=== PATIENT | female | born 1990 | race Caucasian/White ===

== ENCOUNTER 2018-09-15 01:05 | Inpatient (IN) | payer OTHER, SELFPAY ==
[2018-09-15 01:22] VITALS: BMI 28.3
[2018-09-15] MEDS: Lactated Ringers 1,000 ML 15 ML IV (02:10)
[2018-09-15 02:34] LABS: Hematocrit 31.6 % (37-47); Hemoglobin 10.7 g/dl (12.0-15.0); Mean Corp Hgb Conc 33.9 g/gl (32-36); Mean Corpuscular Hgb 29.2 pg (27.0-32.0); Mean Corpuscular Volume 86.3 fL (81-99); Mean Platelet Vol. 10.1 fl (6.2-12.0); Platelet Count 269 K/mm3 (150-450); RBC Distribution Width CV 12.6 % (11.6-14.6); RBC Distribution Width SD 38.6 fl (35.1-43.9); Red Blood Count 3.66 M/mm3 (4.2-5.4); White Blood Count 10.6 K/mm3 (4.4-11.0)
[2018-09-15 02:39] LABS: Scan Indicated on CBC? Y/N NO
[2018-09-15] MEDS: Oxytocin 30 units/NS 500 ml 30 UNITS/500 ML IV.SOLN 334 UNITS IV (03:28)
[2018-09-15] MEDS: Oxytocin 30 units/NS 500 ml 30 UNITS/500 ML IV.SOLN 167 UNITS IV (04:00)
--- NOTE | 2018-09-15 04:03 | PCM.HP.OB ---
- Problem List (1) Tobacco use affecting in first trimester, antepartum Status: Acute (2) Rh negative status during Status: Acute (3) Normal delivery Status: Acute (4) First degree perineal laceration Status: Acute History Date of Admission: 09/15/18 Final ODILIA: 09/15/18 Final ODILIA Source: US <20 weeks Gestational age: 40 Weeks and 0 Days History of this : This is a 28 year-old, G [3], P [2001], at 41 weeks gestational age. Presented to L&D with ROM at 1230am and having irregular contractions. Allergies cephalexin [From Keflex] Allergy (Verified 09/15/18 01:24) Nausea/Vom/Diarrhea CONTROL Allergy (Uncoded 08/15/16 12:22) Hives Home Medications: Home Medications Ketorolac [Toradol] 10 mg PO Q6H PRN #14 tablet 08/13/16 Ondansetron [Zofran Odt] 4 mg PO Q6H PRN PRN #10 tablet 08/13/16 Oxycodone HCl/Acetaminophen [Percocet 5/325] 1 - 2 tablet PO Q6H PRN PRN #20 tablet 08/13/16 Cephalexin [Keflex] 500 mg PO Q8 #9 capsule 08/15/16 Hydrocodone/Acetaminophen [[place] 5-325 Tablet] 1 each PO Q4H PRN PRN #10 tablet 08/15/16 Folic Acid 0.4 mg PO DAILY@0800 09/15/18 Caplet PO DAILY 09/15/18 Smoking Status: Current every day smoker Alcohol: None Number of Fetus(es): 1 Heart Tracin, moderate variability, accels, Categroy 1 History Past Pregnancies: Past Pregnancies Delivery Date Name GA/Weeks Outcome Route Weight Infant Gender Labor Length Anesthesia Delivery Location Provider FOB Labs: GBS negative RPR negative Rubella Immune HIV negative HBsAG negative B negative GC/CT negative Expected Delivery Method: Spontaneous Vaginal Physical Exam General: Alert, Oriented x3, No apparent distress HEENT: Atraumatic, Normocephalic Extremities:: No edema Assessment/Plan All Active Problems Tobacco use affecting in first trimester, antepartum (Acute) Rh negative status during (Acute) Normal delivery (Acute) First degree perineal laceration (Acute) This is a 28 year-old, G [3], P [2002], at 41 weeks gestational age. A:Active labor Spontaneous Rupture of Membranes P: 1) Admit to L&D. Routine labs 2) Planning epidural for pain management 3) Continuous monitoring 4) Active labor with expectant management at this time. 5) notified of patient status and in labor.
--- NOTE | 2018-09-15 04:12 | PCM.OB.VAG ---
- Problem List (1) Tobacco use affecting in first trimester, antepartum Status: Acute (2) Rh negative status during Status: Acute (3) Normal delivery Status: Acute (4) First degree perineal laceration Status: Acute Vaginal Delivery Maternal Presentation: Active Labor, Spontaneous Rupture of Membranes Amniotic Membrane Rupture Type: Spontaneous Amniotic Fluid Description: Clear Final ODILIA: 09/15/18 Gestational age: 40 Weeks and 0 Days Date of Procedure: 09/15/18 Pre-Operative Diagnosis: Active labor, SROM Post-Operative Diagnosis: Surgery/ Procedure Performed: Spontaneous Vaginal Delivery Type of Anesthesia: Local with 1% lidocaine Description of Procedure: Called in for patient unmedicated labor at 6cm, requesting epidural but unable to get due to OR case. Upon arrival patient precipitously delivered unmedicated by Jorge Schneider RN, uncomplicated, Female infant over 1st degree perineal laceration. APGARS 9,10. Cord clamped and cut by FOB. Pitocin started for active 3rd stage management. Placenta delivered via hultz, intact, 3 vessel cord. Perineum inspected and revealed 1st degree perineal laceration repaired with 3.0 vicryl and 1% lidocaine and right periuretheral laceration reparied with 3.0 vicryl. Fundus firm, hemostasis achieved, EBL 300ml. Sponge and instrument count correct. Vaginal sweep and clots extracted. Mom and baby stable. Planning to breastfeed, Family bonding well. notified of delivery. Presentation: Vertex Placental Delivery Description: Spontaneous Placenta Disposition: [facility] Cord Vessel Description: 3 Vessels Cord Entanglement: None Estimated Blood Loss: 300ml A gender: Female (1 minute): 9 (5 minute): 10 Episiotomy Description: None Laceration: Periurethral Extnsion/lac, Perineal Extension/lac, 1st degree Medications given after delivery: IV Pitocin
[2018-09-15 07:51] VITALS: BP 103/64; PULSE 85; RESP 18; TEMP 36.3
[2018-09-15 12:16] VITALS: BP 106/69; PULSE 92; RESP 18; TEMP 36.2; O2SAT 97
[2018-09-15 15:50] VITALS: BP 109/63; PULSE 85; RESP 16; TEMP 36.4
[2018-09-15 20:10] VITALS: BP 111/58; PULSE 100; RESP 16; TEMP 36.4; O2SAT 96
[2018-09-15 22:45] VITALS: BP 104/61; PULSE 82; RESP 16; TEMP 36.1; O2SAT 97
[2018-09-16 03:40] VITALS: BP 107/68; PULSE 86; RESP 16; TEMP 36.6; O2SAT 98
[2018-09-16 07:50] VITALS: BP 100/57; PULSE 72; RESP 17; TEMP 36.3
--- NOTE | 2018-09-16 08:08 | PCM.PN.OB ---
Patient Problems: Active and Suspected Problems Tobacco use affecting in first trimester, antepartum (Acute) Rh negative status during (Acute) Normal delivery (Acute) First degree perineal laceration (Acute) Subjective: Patient doing well and feels ready to go home. Ambulating and voiding without difficulty. [place]eewee reg diet without N/V. Lochia decreasing. Denies CP, SOB, leg pain. She is pumping. - Physical Exam General: Alert, No apparent distress HEENT: Atraumatic Lungs: - - No increased resp effort Abdomen: Soft, Non Tender, - - FF@U-1 Extremities: No edema, No Calf Tenderness Skin: No rashes Neurological: Neuro grossly intact Psych/Mental Status: Normal Affect, Appropriate Vital Signs Temp Pulse Resp BP Pulse Ox 97.4 F L 72 17 100/57 L 98 09/16/18 07:50 09/16/18 07:50 09/16/18 07:50 09/16/18 07:50 09/16/18 03:40 Oxygen Delivery Method Room Air Weight: 160 lb Body Mass Index (BMI) 28.3 Intake and Output for Last 24 Hours 09/14/18 09/15/18 09/16/18 23:59 23:59 23:59 Intake Total 1223 / 1223 Output Total 700 / 700 Balance 523 / 523 Medical Necessity - Tobacco Use Smoking Status: Current every day smoker Assessment/Plan All Active Problems Tobacco use affecting in first trimester, antepartum (Acute) Rh negative status during (Acute) Normal delivery (Acute) First degree perineal laceration (Acute) day#1 s/p - Doing well - Pumping - PPBC: Desires Mirena after 6 wk visit - Dispo: D/c home today. Discharge instructions reviewed
--- NOTE | 2018-09-16 08:12 | DCINST_ITS ---
Discharge Diet: No Restrictions Discharge Activity: May Drive, May Shower May resume sexual activity in: 6 weeks Weight Bearing Status: Weight bearing as tolerated Lifting Restrictions: None Call your doctor if you observe: Fever of 101 or Higher, Inability to urinate, Inability to have a bowel movement, Using more than one pad per hour, Shortness of breath, Dizziness, Chest pain, Increased palpitations (irregular heartbeat), Calf discomfort, Uncontrolled pain Instructions: After a Vaginal Additional Instructions: If you experience any of the following, contact your healthcare provider. * Bleeding that soaks a pad every hour for 2 hours * Fever 100.4 or higher * Unrelieved incision or abdominal pain * Swelling, redness, discharge or bleeding from your incision or episiotomy site * Your incision begins to separate * Problems urinating (including inability to urinate or burning while urinating). * Visual changes * Severe headache * Flu-like symptoms * Pain or redness in one of both of your breasts * Pain, warmth, tenderness or swelling in your legs, especially the calf area * Frequent nausea and vomiting * Symptoms of depression or anxiety If you experience any of the following, call 911 or go to the nearest Emergency Room. * Chest pain * Problems breathing * Seizure activity * Partial or complete paralysis of a body part, slurred speech, weakness or drooping of the face, or a sudden inability to walk or hold your balance Allergies/Adverse Reactions: Allergies cephalexin [From Keflex] Allergy (Verified 09/15/18 01:24) Nausea/Vom/Diarrhea CONTROL Allergy (Uncoded 08/15/16 12:22) Hives Medications to take at Discharge Ketorolac [Toradol] 10 mg PO Q6H PRN #14 tablet 08/13/16 Ondansetron [Zofran Odt] 4 mg PO Q6H PRN PRN #10 tablet 08/13/16 Oxycodone HCl/Acetaminophen [Percocet 5/325] 1 - 2 tablet PO Q6H PRN PRN #20 tablet 08/13/16 Cephalexin [Keflex] 500 mg PO Q8 #9 capsule 08/15/16 Hydrocodone/Acetaminophen [[place] 5-325 Tablet] 1 each PO Q4H PRN PRN #10 tablet 08/15/16 Folic Acid 0.4 mg PO DAILY@0800 01/28/19 [place] PO DAILY 09/15/18 Please Follow Up With: Claudia Diaz CNM When: In 6 weeks for visit. Follow up in 1-2 weeks if you desire Primary Care Physician: Brendon Anderson MD [Primary Care Provider] - Test Results: Test results from this visit will be discussed in further detail at your follow- up appointment, if applicable.
== END 2018-09-16 10:55 | disposition home or self-care (01) | DRG 807 ==
PROVIDERS: Admitting Provider Obstetrics & Gynecology; Family Provider Family Medicine; PCP Family Medicine; Referring Provider Obstetrics & Gynecology; Visit Provider Obstetrics & Gynecology
DX: O48.0 Post-term pregnancy (principal); Z37.0 Single live birth; O70.0 First degree perineal laceration during delivery; Z3A.41 41 weeks gestation of pregnancy; O99.334 Smoking (tobacco) complicating childbirth
CPT/HCPCS: 59025; 59050; 85027; 86850; 86900; 86901; 99218; J7120; G0378